=== PATIENT | male | born 1965 | race Caucasian/White ===

== ENCOUNTER 2016-09-15 11:29 | Day surgery (SDC) | payer BC ==
[~2016-09-15] VITALS: Ht 175.3 cm; Wt 119.3 kg
[~2016-09-15 11:29] MED LIST: ASPIR-LOW81 MG PO; ATENOLOL25 MG PO; ATENOLOL50 MG PO; METFORMIN HCL500 MG PO; PROZAC20 MG PO; RAMIPRIL10 MG PO; SIMVASTATIN40 MG PO; TRICOR145 MG PO; ZYRTEC10 M3 PO
[2016-09-15 12:09] LABS: POINT-OF-CARE METER ID UU13113696
[2016-09-15 15:35] LABS: POINT-OF-CARE METER ID UU13113819
== END 2016-09-15 19:20 | disposition home or self-care (01) ==
LOC: CATH 11:29
PROVIDERS: Internal Medicine Cardiovascular Disease
PROC: 025K3ZZ Destruction of Right Ventricle, Percutaneous Approach (ICD-10-PCS; principal; 2016-09-15)
DX: I47.1 Supraventricular tachycardia (principal); I45.4 Nonspecific intraventricular block; I10 Essential (primary) hypertension
CPT/HCPCS: 82948; C1730; C1732; C1766; C1894; J1200; J2250; J3010; J7050; S0020

== ENCOUNTER 2017-05-16 16:40 | Inpatient (IN) | payer BC ==
[~2017-05-16] VITALS: Ht 175.3 cm; Wt 117.0 kg
[2017-05-16 19:19] LABS: POINT-OF-CARE METER ID UU13113747
[2017-05-16 19:24] LABS: HEMATOCRIT 40.2 % (38.0-50.0); MCH 28.1 PG (29.0-34.0); MCHC 35.6 G/DL (30.0-36.0); MEAN PLAT.VOLUME 10.5 uM^3 (9.0-12.4); PLATELET COUNT 176 K/uL (156-360); RBC DIS.WIDTH-CV 12.5 % (11.8-14.6); RBC DIS.WIDTH-SD 35.7 % (39-53); RED BLOOD COUNT 5.09 M/uL (4.00-5.50); WHITE BLOOD COUNT 11.7 K/uL (4.1-10.2)
[2017-05-16 19:31] LABS: PROTHROMBIN TIME 10.9 SEC (10.2-12.9)
[2017-05-16 19:33] LABS: CHLORIDE 102 mEq/L (99-109); POTASSIUM 3.6 mEq/L (3.7-5.4); SODIUM 135 mEq/L (136-147)
[2017-05-16 19:34] LABS: GLUCOSE 289 mg/dL (70-99); PTT 25.8 SEC (25-37)
[2017-05-16 19:36] LABS: ANION GAP 10 MEQ/L (2-14)
[2017-05-16 19:38] LABS: GFR ESTIMATE (CALCULATED) > 59 mL/min/
[2017-05-16 19:39] LABS: UREA NITROGEN (BUN) 8 mg/dL (9-23)
[2017-05-16 19:48] LABS: TROP-I INTERPRETATION NEGATIVE; TROPONIN-I < 0.01 ng/mL (0.0-0.30)
[2017-05-16 21:23] VITALS: BP 169/74
[2017-05-16 21:30] VITALS: BP 166/75; BP 169/74
[2017-05-16 21:45] VITALS: BP 145/66
[2017-05-16 22:00] VITALS: BP 151/80
[2017-05-16 23:00] VITALS: BP 155/82
[2017-05-16 23:00] LABS: METH RESISTANT S AUREUS PCR NEGATIVE (NEGATIVE)
[2017-05-16 23:02] LABS: PROBE CHECK PASS; SPECIMEN PROCESSING CONTROL PASS
[2017-05-17] VITALS (25 sets, daily range): BP systolic 144–199; BP diastolic 68–105
[2017-05-17 08:32] LABS: POINT-OF-CARE METER ID UU13113731; POINT-OF-CARE USER ID 612031313
[2017-05-17 09:02] LABS: LYME DISEASE SEROLOGY SCREEN NEGATIVE (NEGATIVE)
[2017-05-17 10:10] LABS: ANION GAP 9 MEQ/L (2-14); CHLORIDE 100 MEQ/L (99-109); GFR ESTIMATE (CALCULATED) > 59 mL/min/; GLUCOSE 239 mg/dL (70-99); POTASSIUM 4.1 MEQ/L (3.7-5.4); SAMPLE HEMOLYSIS CHECK 0; SAMPLE ICTERIC CHECK 0; SAMPLE LIPEMIA CHECK 0; SODIUM 137 MEQ/L (136-147); UREA NITROGEN (BUN) 6 mg/dL (9-23)
[2017-05-17 12:37] LABS: POINT-OF-CARE METER ID UU13113731; POINT-OF-CARE USER ID 612031313
[2017-05-17 17:51] LABS: POINT-OF-CARE METER ID UU13113731; POINT-OF-CARE USER ID 612031313
[2017-05-17 20:28] LABS: POINT-OF-CARE METER ID UU14208751
[2017-05-18] VITALS (9 sets, daily range): BP systolic 145–176; BP diastolic 63–116
[2017-05-18 08:42] LABS: POINT-OF-CARE METER ID UU14208751
[2017-05-18 11:42] LABS: POINT-OF-CARE METER ID UU13113748; POINT-OF-CARE USER ID 612031313
== END 2017-05-18 17:14 | disposition home or self-care (01) | DRG 244 ==
LOC: EME 16:40 → 4WEST 19:57 → EDOF 19:57 → ENRESERV 20:02 → 4WEST 21:13 → ENRESERV 05-17 17:39 → 4WEST 05-17 18:16 → ENRESERV 05-17 23:05 → CANRESERV 05-17 23:05 → 4WEST 05-18 17:14
PROVIDERS: Emergency Medicine; Internal Medicine Cardiovascular Disease; Internal Medicine Critical Care Medicine
DX: I44.2 Atrioventricular block, complete (principal); E11.9 Type 2 diabetes mellitus without complications; E78.5 Hyperlipidemia, unspecified; E66.01 Morbid (severe) obesity due to excess calories; E83.51 Hypocalcemia; E87.6 Hypokalemia; I10 Essential (primary) hypertension; I48.91 Unspecified atrial fibrillation; Z68.38 Body mass index [BMI] 38.0-38.9, adult; I45.2 Bifascicular block; R55 Syncope and collapse; R00.1 Bradycardia, unspecified
CPT/HCPCS: 71010; 71020; 80048; 82948; 84484; 85027; 85610; 85730; 86618; 86850; 86900; 86901; 87641; 93005; 99281; 99285; C1785; C1892; C1894; C1898; J0360; J0690; J0696; J1200; J1650; J1815; J2250; J3010; J7030; J7050; S0020